=== PATIENT | male | born 1965 | race Two or more races ===

== ENCOUNTER 2019-11-02 14:12 | Emergency (ER) | payer OTHER ==
[~2019-11-02] VITALS: Ht 165.1 cm; Wt 72.6 kg
[2019-11-02 15:40] VITALS: BP 110/70
[2019-11-02] MEDS ORDERED: ACETAMINOPHEN 325 MG TAB PO ONE (19:52)
== END 2019-11-02 19:26 | disposition left against medical advice (07) ==
LOC: ER 14:18
DX: M79.645 Pain in left finger(s) (principal); Z53.21 Procedure and treatment not carried out due to patient leaving prior to being seen by health care provider

== ENCOUNTER 2019-11-03 03:01 | Emergency (ER) | payer OTHER ==
[~2019-11-03] VITALS: Ht 165.1 cm; Wt 72.6 kg
[2019-11-03 09:03] VITALS: BP 107/71
== END 2019-11-03 09:07 | disposition home or self-care (01) ==
LOC: ER 03:01
DX: S61.213A Laceration without foreign body of left middle finger without damage to nail, initial encounter (principal); K21.9 Gastro-esophageal reflux disease without esophagitis; F17.210 Nicotine dependence, cigarettes, uncomplicated; Z88.0 Allergy status to penicillin; W26.0XXA Contact with knife, initial encounter; Y93.89 Activity, other specified; Y92.89 Other specified places as the place of occurrence of the external cause; Y99.8 Other external cause status
CPT/HCPCS: 12001